=== PATIENT | male | born 1990 | race Hispanic/Latino ===

== ENCOUNTER 2017-10-22 01:14 | Emergency (ER) | payer OTHER ==
[2017-10-22 01:37] VITALS: O2SAT 100
--- NOTE | 2017-10-22 01:47 | ED PDOC ---
HPI: General Adult Time Seen by Provider: 10/22/17 01:23 Chief Complaint (Nursing): Chest Pain Chief Complaint (Provider): Chest Pain History Per: Patient History/Exam Limitations: no limitations Onset/Duration Of Symptoms: Days (x today) Additional Complaint(s): Dragan is a 27 year old male, with a past medical history of ADHD, who was brought by EMS to the emergency department for medical evaluation. Patient states he is visiting area for the holidays. Patient admits to using 5 pills of adderall due to lack of sleep from work-related responsibilities. Patient admits to drinking whiskey and became anxious, dizzy, and "felt like I was going to collapase". Patient was prescribed adderall twiced daily for ADHD. Denies suicidal ideations or homicidal ideations, chest pain, vomiting and fever. PMD: No Family Provider. Past Medical History Reviewed: Historical Data, Nursing Documentation, Vital Signs Vital Signs: Last Vital Signs Temp 97.9 F 10/22/17 03:13 Pulse 96 H 10/22/17 03:13 Resp 15 10/22/17 03:13 BP 144/93 H 10/22/17 03:13 Pulse Ox 100 10/22/17 03:13 - Medical History Other PMH: ADHD - Surgical History Surgical History: No Surg Hx - Family History Family History: States: Unknown Family Hx - Living Arrangements Living Arrangements: Other (in [facility]) - Social History Alcohol: Social Drugs: Other (denies cocaine or THC. Takes adderall daily as Rx from his physician in [facility]) - Home Medications Home Medications: Ambulatory Orders Medication Instructions Recorded Lorazepam [Ativan] 0.5 mg PO BID PRN #5 tab 10/22/17 - Allergies Allergies/Adverse Reactions: Allergies Allergy/AdvReac Type Severity Reaction Status Date / Time No Known Allergies Allergy Verified 10/22/17 01:37 Review of Systems ROS Statement: Except As Marked, All Systems Reviewed And Found Negative Constitutional: Positive for: Other (Dizziness). Negative for: Fever Cardiovascular: Positive for: Palpitations. Negative for: Chest Pain Gastrointestinal: Negative for: Vomiting Psych: Positive for: Anxiety. Negative for: Suicidal ideation, Other ( Homicidal Ideation) Physical Exam - Reviewed Nursing Documentation Reviewed: Yes Vital Signs Reviewed: Yes - Physical Exam Appears: Negative for: Well ((+): very anxious appearing with restlessness) Head Exam: Positive for: ATRAUMATIC, NORMAL INSPECTION, NORMOCEPHALIC Skin: Positive for: Normal Color Eye Exam: Positive for: Other (Pupils are 4 mm bilateral and sluggish) ENT: Positive for: Normal ENT Inspection Neck: Positive for: Normal Cardiovascular/Chest: Positive for: Tachycardia Neurologic/Psych: Positive for: Other (Clear speech noted, neurological intact, anxiety) - Laboratory Results Result Diagrams: 10/22/17 02:11 10/22/17 02:11 - ECG ECG Rhythm: Positive for: Sinus Tachycardia (Rate 105), Nonspecific Changes (ST/ T Changes) O2 Sat by Pulse Oximetry: 100 (RA) Pulse Ox Interpretation: Normal Medical Decision Making Medical Decision Making: workup initiated for likely methemphetamine toxicity as patient took almost double dose of adderall today. IV established, SPO2/ HR monitoring, labs and ativan 1mg IV ordered 245am labs reviewed, etoh neg, trop neg, Hgb normal, mild elev transaminases re-eval patient much improved, HR 90, denies current symptoms of pain, palpitations or dizziness. Wants to go home. Is from [place], will followup at home w PMD/ psychiatrist. Given ativan 0.5mg PO #5 for rescue needs only BID, do not take w alcohol, patient understands plan and DC home. Disposition - Clinical Impression Clinical Impression: Stimulant intoxication, Anxiety, Palpitations - Patient ED Disposition Is Patient to be Admitted: No Counseled Patient/Family Regarding: Studies Performed, Diagnosis, Need For Followup, Rx Given - Disposition Disposition: Routine/Home Disposition Time: 03:01 Condition: STABLE Additional Instructions: Return to ER for any new or worsening symptoms. Take medications only as prescribed. Do not drink alcohol while taking stimulants or anxiolytics. Return to ER for any worse or new symptoms. Prescriptions: Lorazepam [Ativan] 0.5 mg PO BID PRN #5 tab PRN Reason: Anxiety Instructions: Amphetamine/Dextroamphetamine (By mouth), Palpitations (ED), Anxiety (ED) Forms: [employer] [facility] (Welsh)
[2017-10-22] MEDS ORDERED: Sodium Chloride 0.9% 1,000 ML IV STA (02:04)
[2017-10-22 02:16] LABS: BASO # 0.1 K/uL (0.0-0.2); BASO % 0.7 % (0.0-2.0); EOS # 0.2 K/uL (0.0-0.7); EOS % 2.1 % (0.0-4.0); HEMATOCRIT 47.6 % (35.0-51.0); LYMPH # 3.2 K/uL (1.0-4.3); LYMPH % 31.6 % (20.0-40.0); MEAN CELL VOLUME 87.3 fl (80.0-94.0); MEAN CORPUSCULAR HEMOGLOBIN 29.5 pg (27.0-31.0); MEAN CORPUSCULAR HGB CONC 33.7 g/dL (33.0-37.0); MEAN PLATELET VOLUME 10.2 fl (7.2-11.7); MONO # 1.3 K/uL (0.0-0.8); MONO % 12.7 % (0.0-10.0); NEUT # 5.4 K/uL (1.8-7.0); NEUT % 52.9 % (50.0-75.0); NRBC % 0.1 % (0.0-0.0); WHITE BLOOD COUNT 10.3 K/uL (4.8-10.8)
[2017-10-22 02:27] LABS: ALB/GLOB RATIO 1.6 (1.0-2.1); ALCOHOL SERUM < 10 mg/dl (0-10); BILIRUBIN,TOTAL 0.9 mg/dl (0.2-1.3); CALCIUM 10.2 mg/dL (8.4-10.2); CARBON DIOXIDE 22 mmol/L (22-30); CHLORIDE 102 mmol/L (98-107); GFR AFRICAN-AMERICAN > 60; GLUCOSE,RANDOM 96 mg/dL (75-110); SODIUM 140 mmol/l (132-148)
[2017-10-22 02:40] LABS: ALKALINE PHOSPHATASE 66 U/L (38-126); ALT/SGPT 87 U/L (21-72); AST/SGOT 72 U/L (17-59); BLOOD UREA NITROGEN 17 mg/dl (9-20); POTASSIUM 3.6 MMOL/L (3.6-5.0)
[2017-10-22 03:13] VITALS: BP 144/93; PULSE 96; RESP 15; TEMP 97.9
--- NOTE | 2017-10-23 10:04 | CARD ---
APPROVED REPORT EKG Measurement Heart [id number] ID [id number] <Conclusion> Sinus tachycardia T wave abnormality, consider inferior ischemia Abnormal ECG
== END 2017-10-22 03:13 | disposition home or self-care (01) ==
LOC: H.ER 01:14
DX: F41.9 Anxiety disorder, unspecified (principal); R00.2 Palpitations; F90.9 Attention-deficit hyperactivity disorder, unspecified type
CPT/HCPCS: 80053; 80320; 84484; 85025; 93005; 96374; 99284; J2060; J7040